=== PATIENT | male | born 1995 ===

== ENCOUNTER 2017-08-27 15:39 | Inpatient (IN) ==
[2017-08-27 17:21] LABS: Basophils % 0.3 %; Eosinophils % 0.1 %; Hematocrit 47.7 % (37.5-50.1); Hemoglobin 16.2 g/dL (12.9-16.9); Immature Granulocytes % 0.3 % (0-4); Lymphocytes # 1.9 K/mcL (0.6-4.6); Lymphocytes % 19.4 %; Mean Corpuscular Hemoglobin 31.4 pg (28.0-33.3); Mean Corpuscular Volume 92.4 fL (83.0-100.0); Monocytes # 1.1 K/mcL (0.0-1.3); Monocytes % 11.5 %; Neutrophils # 6.7 K/mcL (1.6-8.9); Platelet Count 312 K/mcL (140-400); Red Blood Count 5.16 M/mcL (4.19-5.50); Red Cell Distribution Width 12.3 % (11.5-14.5); Segmented Neutrophils % 68.4 %
[2017-08-27 17:35] LABS: Alanine Aminotransferase 27 Units/L (0-55); Albumin/Globulin Ratio 0.9 (1.1-2.2); Alkaline Phosphatase 79 Units/L (38-126); Aspartate Amino Transferase 26 Units/L (5-34); BUN/Creatinine Ratio 13 (6-26); Bilirubin,Direct 0.4 mg/dL (0.0-0.5); Bilirubin,Indirect 0.6 mg/dL (0.0-1.2); Blood Urea Nitrogen 12 mg/dL (8-26); Calcium 9.8 mg/dL (8.6-10.8); Carbon Dioxide 25 mEq/L (19-29); Chloride 99 mEq/L (98-109); Globulin 4.5 g/dL (2.4-3.5); Glucose 99 mg/dL (70-99); Osmolality,Calculated 280 (280-300); Potassium 4.8 mEq/L (3.5-4.5); Sodium 135 mEq/L (136-145); Total Protein 8.5 g/dL (6.0-8.3); eGFR For African Americans > 60 (> 60); eGFR For Non-African Americans > 60 (> 60)
[2017-08-27 17:36] LABS: Lipase < 10 Units/L (8-78)
[2017-08-27] MEDS ORDERED: Sucralfate 1 GM TABLET PO STA (18:21)
[2017-08-27 18:24] LABS: Bilirubin,Urine Negative (Negative); Blood,Urine Moderate (Negative); Clarity,Urine Clear (Clear); Color,Urine Dark Yellow (Yellow); Glucose,Urine (UA) Normal (Normal); Ketones,Urine Negative (Negative); Leukocyte Esterase,Urine Negative (Negative); Nitrite,Urine Negative (Negative); PH,Urine 6.5 pH Units (5.0-8.0); Protein,Urine 30 mg/dL (Neg-Trace); Specific Gravity,Urine > 1.030 (1.010-1.025); Urobilinogen,Urine Normal (Normal)
[2017-08-27 18:28] LABS: Bacteria,Urine None Seen per hpf (None-Few); Hyaline Casts,Urine None Seen per lpf (None-Few); RBC,Urine 15-30 per hpf (0-3); Squamous Epithelial Cell,Urine Few per lpf (None-Few); WBC,Urine 0-3 per hpf (0-3)
--- NOTE | 2017-08-27 18:32 | Emergency Department Note ---
Disposition Clinical Impression: Epigastric pain, Small bowel obstruction Disposition: Admitted As Inpatient Condition: Fair Time of Disposition: 18:49 Abdominal Pain HPI - General Chief Complaint: ED Abdominal Pain Stated Complaint: abd pain Time Seen by Provider: 08/27/17 18:21 Source: patient Mode of arrival: ambulatory Limitations: no limitations Nursing Notes Reviewed: Yes Vital Signs Reviewed: Yes - History of Present Illness HPI Narrative: 22-year-old male with history of intermittent epigastric pain that has been ongoing over the course of the past 2 months. The patient states that this past Saturday he began planing of epigastric pain that was nonradiating. The patient has some associated nausea without vomiting. He denies any fevers, chills, or any other complaints noted. The patient is resting comfortably in the room. He called his PCP today to be seen and they stated that they were unable to get him and so he should go to the emergency department for a CT scan. The patient denies any other complaints. He states that they thought his epigastric pain was so she with a gastric ulcer. The patient denies any melena or hematochezia. The patient states that he has had no real evaluation for his epigastric pain in the past. Pt Subjective Complaint: abdominal pain Onset (ago): day(s) (3) Consistency: intermittent Location: epigastric Pain Severity: moderate Pain Scale: 5 Quality: stabbing Radiation: none Migration to: no migration Improves with: nothing Worsens with: nothing Context: history of similar episodes Associated symptoms: Reports: nausea Treatments prior to arrival: none - Related Data Allergies Allergy/AdvReac Type Severity Reaction Status Date / Time No Known Allergies Allergy Verified 08/27/17 15:43 All systems ED: reviewed and negative except as stated. Constitutional: Denies: fever, chills, weakness ENT ED: Denies: congestion Cardiovascular: Denies: chest pain Respiratory: Denies: dyspnea Gastrointestinal: Reports: abdominal pain, nausea. Denies: vomiting, diarrhea, constipation, hematemesis, melena, hematochezia Genitourinary: Denies: urgency, dysuria Musculoskeletal: Denies: back pain, neck pain, arthralgia, myalgia Integumentary: Denies: rash Neurological: Denies: headache Abdominal Pain PMH - Past Medical History Medical history: Reports: thyroid disease Male Surgical History: Reports: no surgical history Psychiatric history: Reports: no psych history - Social History Smoking status: Never smoker Alcohol use: Reports: occasionally Drug use: Reports: none Physical Exam - General Limitations: no limitations General appearance: alert, in no apparent distress - Head Head exam: atraumatic, normocephalic, normal inspection - Eye Eye exam: Present: normal appearance, PERRL, EOMI - ENT ENT exam: normal exam, normal oropharynx, mucous membranes moist - Neck Neck exam: Present: normal inspection, full ROM, trachea midline - Chest Chest inspection: Present: normal inspection, symmetric chest wall rise - Respiratory Respiratory exam: Present: normal lung sounds bilaterally - Cardiovascular Cardiovascular exam: Present: regular rate, normal rhythm, normal heart sounds - Abdominal Exam Abdominal exam: Present: soft, tenderness (Epigastric). Absent: distention, guarding, rebound, rigidity - Extremities Exam Extremities exam: Present: normal inspection, full ROM. Absent: tenderness, pedal edema Course Vital Signs Temperature 97.9 F 08/27/17 15:40 Pulse Rate 76 08/27/17 15:40 Respiratory Rate 16 08/27/17 15:40 Blood Pressure 135/79 08/27/17 15:40 O2 Sat by Pulse Oximetry 99 08/27/17 15:40 Temperature 98.1 F 08/28/17 22:59 Pulse Rate 48 08/28/17 22:59 Respiratory Rate 15 08/28/17 22:59 Blood Pressure 119/70 08/28/17 22:59 O2 Sat by Pulse Oximetry 98 08/28/17 22:59 Oxygen Delivery Oxygen Delivery Room Air Abdominal Pain - Lab Data Result diagrams: 08/29/17 03:06 08/29/17 03:06 Lab Results 08/27/17 08/27/17 08/27/17 Range/Units 17:14 17:14 18:04 WBC 9.7 (4.3-11.1) K/mcL RBC 5.16 (4.19-5.50) M/mcL Hgb 16.2 (12.9-16.9) g/dL Hct 47.7 (37.5-50.1) % MCV 92.4 (83.0-100.0) fL MCH 31.4 (28.0-33.3) pg MCHC 34.0 (31.6-35.5) g/dL RDW 12.3 (11.5-14.5) % Plt Count 312 (140-400) K/mcL MPV 9.0 L (9.4-12.4) fL Immature Gran % 0.3 (0-4) % Seg Neutrophils % 68.4 % Lymphocytes % 19.4 % Monocytes % 11.5 % Eosinophils % 0.1 % Basophils % 0.3 % Neutrophils # 6.7 (1.6-8.9) K/mcL Lymphocytes # 1.9 (0.6-4.6) K/mcL Monocytes # 1.1 (0.0-1.3) K/mcL Eosinophils # 0.0 (0.0-0.6) K/mcL Basophils # 0.0 (0.0-0.2) K/mcL Sodium 135 L (136-145) mEq/L Potassium 4.8 H (3.5-4.5) mEq/L Chloride 99 (98-109) mEq/L Carbon Dioxide 25 (19-29) mEq/L BUN 12 (8-26) mg/dL Creatinine 0.90 (0.72-1.25) mg/dL Est GFR ( Amer) > 60 (> 60) Est GFR (Non-Af Amer) > 60 (> 60) BUN/Creatinine Ratio 13 (6-26) Glucose 99 (70-99) mg/dL Calculated Osmolality 280 (280-300) Calcium 9.8 (8.6-10.8) mg/dL Total Bilirubin 1.0 (0.2-1.2) mg/dL Direct Bilirubin 0.4 (0.0-0.5) mg/dL Indirect Bilirubin 0.6 (0.0-1.2) mg/dL AST 26 (5-34) Units/L ALT 27 (0-55) Units/L Alkaline Phosphatase 79 (38-126) Units/L Serum Total Protein 8.5 H (6.0-8.3) g/dL Albumin 4.0 (3.5-5.0) g/dL Globulin 4.5 H (2.4-3.5) g/dL Albumin/Globulin Ratio 0.9 L (1.1-2.2) Lipase < 10 (8-78) Units/L Urine Color Dark Yellow (Yellow) Urine Clarity Clear (Clear) Urine pH 6.5 (5.0-8.0) pH Units Ur Specific [place] > 1.030 H (1.010-1.025) Urine Protein 30 H (Neg-Trace) mg/dL Urine Glucose (UA) Normal (Normal) mg/dL Urine Ketones Negative (Negative) mg/dL Urine Blood Moderate H (Negative) Urine Nitrite Negative (Negative) Urine Bilirubin Negative (Negative) Urine Urobilinogen Normal (Normal) mg/dL Ur Leukocyte Esterase Negative (Negative) Urine Microscopic RBC 15-30 H (0-3) per hpf Urine Microscopic WBC 0-3 (0-3) per hpf Ur Squamous Epith Cells Few (None-Few) per lpf Urine Bacteria None Seen (None-Few) per hpf Hyaline Casts None Seen (None-Few) per lpf Ur Culture Indicated? NO (NO) Attestation Statement - Attestation Attestation: I examined this patient and my medical decision-making was reviewed with the Resident Physician. I agree with the documented findings, disposition and treatment plan as described except to the extent set forth below. Sent in by PCP for CT scan. Isolated epigastric pain with one episode of vomiting. Pain may be exacerbated by food but he can't identify specific foods that make it worse. Referred d/t persistence of symptoms. Tender in the epigastrium without guarding on my exam, no peritonitis, abdomen is flat, no distension. CT pending at the time of shift change, checked out to Drs. Suh /Gino.
[2017-08-27] MEDS ORDERED: Tetracaine/Benzocaine/Butamben 200MG/SPRAY (100SPY/BOT) MM ONE (20:44)
[2017-08-27] MEDS: 0.9 % Sodium Chloride 1,000 ML IVC SCH ×2 (20:49→23:37)
--- NOTE | 2017-08-27 21:02 | Emergency Department Note ---
Disposition Clinical Impression: Epigastric pain, Small bowel obstruction Disposition: Admitted As Inpatient Condition: Fair Time of Disposition: 21:03 Abdominal Pain HPI - General Chief Complaint: ED Abdominal Pain Stated Complaint: abd pain Time Seen by Provider: 08/27/17 18:21 Source: patient Mode of arrival: ambulatory Nursing Notes Reviewed: Yes Vital Signs Reviewed: Yes - History of Present Illness Pt Subjective Complaint: abdominal pain Location: epigastric Pain Severity: moderate Pain Scale: 4 Quality: stabbing Migration to: no migration Improves with: nothing Worsens with: nothing Context: history of similar episodes Associated symptoms: Reports: nausea - Related Data Home Medications Medication Instructions Recorded Confirmed Levothyroxine [Synthroid] 75 mcg PO QAM 08/27/17 08/27/17 Allergies Allergy/AdvReac Type Severity Reaction Status Date / Time No Known Allergies Allergy Verified 08/27/17 15:43 Constitutional: Denies: fever, chills, weakness ENT ED: Denies: congestion Cardiovascular: Denies: chest pain Respiratory: Denies: dyspnea Gastrointestinal: Reports: abdominal pain, nausea. Denies: vomiting, diarrhea, constipation, hematemesis, melena, hematochezia Genitourinary: Denies: urgency, dysuria Musculoskeletal: Denies: back pain, neck pain, arthralgia, myalgia Integumentary: Denies: rash Neurological: Denies: headache Abdominal Pain PMH - Past Medical History Medical history: Reports: thyroid disease Male Surgical History: Reports: no surgical history Psychiatric history: Reports: no psych history - Social History Smoking status: Never smoker Alcohol use: Reports: occasionally Drug use: Reports: none Physical Exam - General Limitations: no limitations General appearance: alert, in no apparent distress Course Course Narrative: 22-year-old male with epigastric pain, the patient was signed out by Dr. Lagunas and Dr. Ace, briefly abdominal pain for a few days, with anorexia and loose stools, CT scan shows that there is a small bowel obstruction with to transition points, the patient is to be placed nothing by mouth we will place an NG tube and in consult with general surgeon, plan is for admission hospitalist - Reevaluation(s) Reevaluation #1: Tez accepts for admission gen surg consult Time: 21:02 - Consultations Consultation #1: I spoke with the general surgeon Dr. aparicio, he advises that the patient needs to be kept nothing by mouth maintenance fluids and NG-tube placement he will consult on the patient in the morning agrees with admission to the hospitalist Time: 21:00 Vital Signs Temperature 97.9 F 08/27/17 15:40 Pulse Rate 76 08/27/17 15:40 Respiratory Rate 16 08/27/17 15:40 Blood Pressure 135/79 08/27/17 15:40 O2 Sat by Pulse Oximetry 99 08/27/17 15:40 Temperature 97.9 F 08/27/17 15:40 Pulse Rate 72 08/27/17 19:27 Respiratory Rate 16 08/27/17 19:27 Blood Pressure 122/72 08/27/17 19:27 O2 Sat by Pulse Oximetry 99 08/27/17 19:27 Oxygen Delivery Oxygen Delivery Room Air Abdominal Pain - Differential Diagnosis Differential Diagnosis: Likely: diverticulitis - Medical Records Medical records reviewed: Yes I reviewed the patient's medical records. - Lab Data Lab results reviewed: Yes I reviewed the patient's lab results. Result diagrams: 08/27/17 17:14 08/27/17 17:14 Lab Results 08/27/17 08/27/17 08/27/17 Range/Units 17:14 17:14 18:04 WBC 9.7 (4.3-11.1) K/mcL RBC 5.16 (4.19-5.50) M/mcL Hgb 16.2 (12.9-16.9) g/dL Hct 47.7 (37.5-50.1) % MCV 92.4 (83.0-100.0) fL MCH 31.4 (28.0-33.3) pg MCHC 34.0 (31.6-35.5) g/dL RDW 12.3 (11.5-14.5) % Plt Count 312 (140-400) K/mcL MPV 9.0 L (9.4-12.4) fL Immature Gran % 0.3 (0-4) % Seg Neutrophils % 68.4 % Lymphocytes % 19.4 % Monocytes % 11.5 % Eosinophils % 0.1 % Basophils % 0.3 % Neutrophils # 6.7 (1.6-8.9) K/mcL Lymphocytes # 1.9 (0.6-4.6) K/mcL Monocytes # 1.1 (0.0-1.3) K/mcL Eosinophils # 0.0 (0.0-0.6) K/mcL Basophils # 0.0 (0.0-0.2) K/mcL Sodium 135 L (136-145) mEq/L Potassium 4.8 H (3.5-4.5) mEq/L Chloride 99 (98-109) mEq/L Carbon Dioxide 25 (19-29) mEq/L BUN 12 (8-26) mg/dL Creatinine 0.90 (0.72-1.25) mg/dL Est GFR ( Amer) > 60 (> 60) Est GFR (Non-Af Amer) > 60 (> 60) BUN/Creatinine Ratio 13 (6-26) Glucose 99 (70-99) mg/dL Calculated Osmolality 280 (280-300) Calcium 9.8 (8.6-10.8) mg/dL Total Bilirubin 1.0 (0.2-1.2) mg/dL Direct Bilirubin 0.4 (0.0-0.5) mg/dL Indirect Bilirubin 0.6 (0.0-1.2) mg/dL AST 26 (5-34) Units/L ALT 27 (0-55) Units/L Alkaline Phosphatase 79 (38-126) Units/L Serum Total Protein 8.5 H (6.0-8.3) g/dL Albumin 4.0 (3.5-5.0) g/dL Globulin 4.5 H (2.4-3.5) g/dL Albumin/Globulin Ratio 0.9 L (1.1-2.2) Lipase < 10 (8-78) Units/L Urine Color Dark Yellow (Yellow) Urine Clarity Clear (Clear) Urine pH 6.5 (5.0-8.0) pH Units Ur Specific [place] > 1.030 H (1.010-1.025) Urine Protein 30 H (Neg-Trace) mg/dL Urine Glucose (UA) Normal (Normal) mg/dL Urine Ketones Negative (Negative) mg/dL Urine Blood Moderate H (Negative) Urine Nitrite Negative (Negative) Urine Bilirubin Negative (Negative) Urine Urobilinogen Normal (Normal) mg/dL Ur Leukocyte Esterase Negative (Negative) Urine Microscopic RBC 15-30 H (0-3) per hpf Urine Microscopic WBC 0-3 (0-3) per hpf Ur Squamous Epith Cells Few (None-Few) per lpf Urine Bacteria None Seen (None-Few) per hpf Hyaline Casts None Seen (None-Few) per lpf Ur Culture Indicated? NO (NO) - Radiology Data Radiology results reviewed: Yes I reviewed the patient's radiology results. Abdomen/Pelvis CT 08/27/17 18:21 IMPRESSION: A few mildly to moderately dilated small bowel loops with two suspected distinct transition points, suggestive of a closed loop obstruction. The finding can be seen with and internal hernia, but none is definitely identified. D/ / Drew Doll MD / Drew Doll MD Interpreting Provider: Drew Doll MD Attestation Statement - Attestation Attestation: I, Isiah Suh MD, personally evaluated this patient and discussed their management with the resident physician. I reviewed the resident's note and agree with the documented findings, medical decision making, and plan of care. This patient was signed out at shift change from Dr. Singleton and Dr. Ace. Please refer to their notes for complete details of the history and physical examination. Patient is a young male who presented with a complaint of epigastric abdominal pain for the past 2 days. One episode of vomiting last evening. Decreased bowel movements with a small amount of watery diarrhea. No GI bleed symptoms. No fever. At shift change patient is awaiting a CT of the abdomen and pelvis. On examination patient is a well-developed thin young male in no acute distress. He is alert and oriented 3. There is no cyanosis or diaphoresis. Breath sounds are clear and equal bilaterally. Heart regular rate and rhythm. Abdomen is soft with increased bowel sounds. There is mild to moderate epigastric and periumbilical abdominal tenderness with no guarding or rebound tenderness. No tympany or distention. Labs reviewed. CT abdomen and pelvis returned suggestive of a closed loop small bowel obstruction. Dr. Christian discussed with the surgeon exceptional student education teacher, Dr. Aparicio, and he will consult on patient in the hospital. He did recommend an NG tube be placed. The hospitalist, Dr. Reagan, was consulted and accepted admission of the patient.
[2017-08-28] MEDS ORDERED: *HR* Morphine 2 MG/ML SYRINGE IVP PRN (01:21)
[2017-08-28] MEDS ORDERED: Naloxone 0.4 MG/ML INJ IVP PRN (01:21)
[2017-08-28] MEDS ORDERED: Ondansetron 4 MG/2 ML VIAL IVP PRN (01:21)
--- NOTE | 2017-08-28 01:27 | Internal Med History&Physical ---
Date of Encounter: 08/28/17 Time of Encounter: 01:25 Assessment and Plan (1) Small bowel obstruction Current visit: Yes Status: Acute Patient presented with small bowel obstruction as shown on CT abdomen. General surgery was consulted. IV fluid IV Pepcid IV morphine started. CBC CMP to be repeated in the morning. SCDs for DVT prophylaxis. (2) Hypothyroidism Current visit: Yes Status: Acute We will resume IV Synthroid. Qualifiers: Hypothyroidism type: unspecified Qualified Code(s): E03.9 - Hypothyroidism , unspecified Internal Medicine - H&P: HPI Chief complaint: Abdominal pain Admitted From: Home Plans for Post Hospital Care: Home History of present illness: Mr. Rodriguez is a 22 year old male presented with several day history of abdominal discomfort, nausea vomiting and diarrhea. Abdominal pain is periumbilical and spread over his belly and colicky in nature. In the ER CT abdomen and pelvis without contrast was done which showed dilated small bowel loops with 2 transition points. Patient has been diagnosed with small bowel obstruction. He denied any other symptoms including no hematuria and hematochezia hematemesis melena shortness of breath headache neck pain dysuria urgency frequency or hematuria or any other symptoms otherwise. He seems quite underweight. Past Med Surg Social Fam HX - Past Medical History Medical history: thyroid disease Psychiatric history: no psych history - Past Surgical History Surgical History: no surgical history - Social History Smoking Status: Never smoker Smokeless Tobacco Status: No Alcohol use: occasionally Drug use: none - Family History Father Living Status: Still Living Hx Family Cancer: Yes (Prostate Cancer) Hx Family Endocrine Disorder: Yes (DM) Internal Medicine - H&P: Meds Levothyroxine [Synthroid] 75 mcg PO QAM 08/27/17 [History] 3 Allergy/AdvReac Type Severity Reaction Status Date / Time No Known Allergies Allergy Verified 08/27/17 15:43 All Systems PM: A 10-system review of systems was performed and is negative for pertinent findings except as documented above in the HPI. - Constitutional Constitutional: no chills, no fever(s), no night sweats - EENT Eyes: no change in vision, no discharge, no pain, no photophobia Ears: no ear discharge, no ear pain, no tinnitus Nose, mouth and throat: no dysphagia, no nasal discharge, no neck pain, no sore throat - Cardiovascular Cardiovascular ROS IM: no chest pain, no diaphoresis, no dyspnea, no lightheadedness, no palpitations, no syncope - Respiratory Respiratory: no cough, no dyspnea, no wheezing, no excessive phlegm production - Gastrointestinal Gastrointestinal: diarrhea, nausea, vomiting, no abdominal pain, no hematemesis , no hematochezia, no melena - Musculoskeletal Musculoskeletal ROS IM: no numbness, no tingling - Integumentary Integumentary IM: no rash, no unusual bruising - Neurological Neurological ROS: no confusion, no convulsions, no focal weakness, no numbness, no tingling, no tremor(s) - Hematologic/Lymphatic Hematologic/Lymphatic: no easy bruising - Constitutional Vitals: Temp Pulse Resp BP Pulse Ox 98.1 F 76 16 134/88 97 08/27/17 23:18 08/27/17 23:18 08/27/17 23:18 08/27/17 23:18 08/27/17 23:18 - Head Head exam: Present: atraumatic, normocephalic - Eye Eye exam: Present: PERRL, conjuntiva pink, sclera anicteric Pupils: Present: PERRL - Neck Neck exam general surgery: Present: supple, trachea midline. Absent: lymphadenopathy - Respiratory Respiratory exam: Present: CTAB. Absent: accessory muscle use, rales, rhonchi, wheezes - Cardiovascular Cardiovascular exam: Present: RRR, +S1, +S2. Absent: diastolic murmur, gallop, rubs, systolic murmur - GI/Abdominal GI/Abdominal exam: Present: distended, normal bowel sounds, soft, tenderness, no peritoneal signs - Extremities Exam Extremities exam: Present: warm, radial pulses palpable and symmetrical. Absent : calf tenderness, cyanotic, pedal edema - Neurological Exam Neurological exam: Present: CN II-XII intact, oriented X3, no focal deficits. Absent: pronater drift, facial droop, speech deficit - Skin Skin exam: Present: dry, intact Internal Med - H&P Results - Labs CBC & Chem 7: 08/27/17 17:14 08/27/17 17:14
[2017-08-28] MEDS: Famotidine 20 MG/2 ML VIAL IVP SCH ×2 (05:16→17:35)
[2017-08-28 06:18] LABS: Basophils % 0.1 %; Eosinophils % 0.2 %; Hematocrit 44.3 % (37.5-50.1); Hemoglobin 15.2 g/dL (12.9-16.9); Immature Granulocytes % 0.3 % (0-4); Lymphocytes # 2.2 K/mcL (0.6-4.6); Lymphocytes % 24.5 %; Mean Corpuscular HGB Conc 34.3 g/dL (31.6-35.5); Mean Corpuscular Hemoglobin 31.8 pg (28.0-33.3); Mean Corpuscular Volume 92.7 fL (83.0-100.0); Mean Platelet Volume 9.5 fL (9.4-12.4); Monocytes # 1.2 K/mcL (0.0-1.3); Monocytes % 13.7 %; Neutrophils # 5.5 K/mcL (1.6-8.9); Platelet Count 278 K/mcL (140-400); Red Blood Count 4.78 M/mcL (4.19-5.50); Red Cell Distribution Width 12.5 % (11.5-14.5); Segmented Neutrophils % 61.2 %
[2017-08-28 06:37] LABS: BUN/Creatinine Ratio 14 (6-26); Blood Urea Nitrogen 12 mg/dL (8-26); Carbon Dioxide 25 mEq/L (19-29); Chloride 103 mEq/L (98-109); Glucose 89 mg/dL (70-99); Osmolality,Calculated 285 (280-300); Potassium 4.2 mEq/L (3.5-4.5); Sodium 138 mEq/L (136-145); eGFR For African Americans > 60 (> 60); eGFR For Non-African Americans > 60 (> 60)
[2017-08-28] MEDS: 0.9 % Sodium Chloride 1,000 ML IVC SCH ×3 (08:21→19:21)
--- NOTE | 2017-08-28 15:36 | General Surgery Consult Note ---
Date of Encounter: 08/28/17 Time of Encounter: 15:00 History of Present Illness Consult date: 08/28/17 Reason for consult: abdominal pain Requesting physician: Chas Christian History of present illness: 22-year-old referred for surgical evaluation after presenting to the emergency department with a several-day history of epigastric/periumbilical cramping abdominal pain. Patient denied any emesis. He has been anorexic. Patient describes a similar episode in March which lasted 2-3 days before resolving. It is possible he had a similar episode approximately 1 year ago. The evaluation included lab work which was fairly unremarkable: White count 9.7, hemoglobin 16.2, hematocrit 47.7, platelet count 312,000, normal differential. Electrolytes, BUN, creatinine were within normal limits though potassium was reported to be marginally elevated at 4.8. LFTs were normal. Urinalysis was notable for a specific gravity greater than 1.030 with urine protein of 30 and 15-30 RBCs per high-powered field. CT completed without contrast demonstrated clear lung bases, normal heart size, no pleural or pericardial effusions, normal appearance of the liver, gallbladder, pancreas, spleen, adrenal glands and kidneys. Several mildly dilated loops small bowel in the central upper and lower pelvis are described. Both proximal and distal transition zones were suspected but on my review of these films with adeno radiology those transition points were not clearly identified. The colon was relatively decompressed and the appendix was normal. No significant abdominal or pelvic lymphadenopathy was identified. Past medical history: Hypothyroidism Surgical history: None Medications: Synthroid Allergies: No known drug allergies Social history: Patient is a fourth year at [employer]; he does not smoke nor consume illicit drugs. He does admit to an occasional alcoholic beverage. 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 Physical examination: Age-appropriate male resting comfortably in his hospital bed. NG tube is in place with bilious drainage evident within the suction reservoir. With NG decompression, the patient's crampy abdominal pain has diminished. NG output approximate 550 mL. The patient is 1.8 m tall, 71.9 kg with a BMI of 22.1; maximum temperature 99.2; pulse 56-74, respirations 16, blood pressure 126/69 Skin is warm without obvious jaundice, sclerae are not icteric Lungs: Clear, no obvious abdominal pain with deep inspiration Cardiac: Regular rate with no audible murmurs Abdomen: Soft, nondistended, with active bowel sounds. Minimal tenderness in the left lower quadrant. No obvious intra-abdominal masses, no rebound, no CVAT. Extremities without clubbing cyanosis or edema Impression: 22-year-old male with no prior surgical history noted after presenting to the emergency department with a several day history of epigastric/ periumbilical cramping abdominal pain. CT demonstrated findings suggestive of a small bowel obstruction with the reading radiologist describing 2 possible transition zones suggestive of a closed loop small bowel obstruction. The patient describes similar symptoms in March of this past year and possibly one year ago. No obvious volvulus was identified per CT. The etiology of this patient's symptoms remains obscure. I have discussed the clinical situation with the patient and his family in attendance. A small bowel follow-through with Gastrografin will be initiated. I will follow along with you and make further recommendations as the information becomes available. Past Med Surg Social Fam HX - Past Medical History Medical history: thyroid disease Psychiatric history: no psych history - Past Surgical History Surgical History: no surgical history - Social History Smoking Status: Never smoker Smokeless Tobacco Status: No Alcohol use: occasionally Drug use: none - Family History Father Living Status: Still Living Hx Family Cancer: Yes (Prostate Cancer) Hx Family Endocrine Disorder: Yes (DM) Medications and Allergies Levothyroxine [Synthroid] 75 mcg PO QAM 08/27/17 [History] 3 Allergy/AdvReac Type Severity Reaction Status Date / Time No Known Allergies Allergy Verified 08/27/17 15:43 Review of Systems All systems PM: A 10-system review of systems was performed and is negative for pertinent findings except as documented above in the HPI. General Surgery Exam Initial Vital Signs Temp Pulse Resp BP Pulse Ox 97.9 F 76 16 135/79 99 08/27/17 15:40 08/27/17 15:40 08/27/17 15:40 08/27/17 15:40 08/27/17 15:40 Exam Initial Vital Signs Temp Pulse Resp BP Pulse Ox 97.9 F 76 16 135/79 99 08/27/17 15:40 08/27/17 15:40 08/27/17 15:40 08/27/17 15:40 08/27/17 15:40 Results - Labs 08/28/17 05:28 08/28/17 05:28 Abnormal lab results Serum Total Protein 8.5 g/dL (6.0-8.3) H 08/27/17 17:14 Globulin 4.5 g/dL (2.4-3.5) H 08/27/17 17:14 Albumin/Globulin Ratio 0.9 (1.1-2.2) L 08/27/17 17:14 Ur Specific [place] > 1.030 (1.010-1.025) H 08/27/17 18:04 Urine Protein 30 mg/dL (Neg-Trace) H 08/27/17 18:04 Urine Blood Moderate (Negative) H 08/27/17 18:04 Urine Microscopic RBC 15-30 per hpf (0-3) H 08/27/17 18:04 Diabetes panel 08/28/17 Range/Units 05:28 Sodium 138 (136-145) mEq/L Potassium 4.2 (3.5-4.5) mEq/L Chloride 103 (98-109) mEq/L Carbon Dioxide 25 (19-29) mEq/L BUN 12 (8-26) mg/dL Creatinine 0.85 (0.72-1.25) mg/dL Glucose 89 (70-99) mg/dL Calcium 9.0 (8.6-10.8) mg/dL Calcium panel 08/28/17 Range/Units 05:28 Calcium 9.0 (8.6-10.8) mg/dL Pituitary panel 08/28/17 Range/Units 05:28 Sodium 138 (136-145) mEq/L Potassium 4.2 (3.5-4.5) mEq/L Chloride 103 (98-109) mEq/L Carbon Dioxide 25 (19-29) mEq/L BUN 12 (8-26) mg/dL Creatinine 0.85 (0.72-1.25) mg/dL Glucose 89 (70-99) mg/dL Calcium 9.0 (8.6-10.8) mg/dL Adrenal panel 08/28/17 Range/Units 05:28 Sodium 138 (136-145) mEq/L Potassium 4.2 (3.5-4.5) mEq/L Chloride 103 (98-109) mEq/L Carbon Dioxide 25 (19-29) mEq/L BUN 12 (8-26) mg/dL Creatinine 0.85 (0.72-1.25) mg/dL Glucose 89 (70-99) mg/dL Calcium 9.0 (8.6-10.8) mg/dL All other labs normal. Consult Discharge Plan - Plan Referrals: Ridge Howard MD [Family Provider] - Clay Garcia DO [Primary Care Provider] - 09/02/17 12:00 pm
[2017-08-29 03:29] LABS: Basophils % 0.1 %; Eosinophils % 0.6 %; Hematocrit 40.5 % (37.5-50.1); Hemoglobin 13.9 g/dL (12.9-16.9); Immature Granulocytes % 0.4 % (0-4); Lymphocytes # 1.8 K/mcL (0.6-4.6); Lymphocytes % 26.1 %; Mean Corpuscular HGB Conc 34.3 g/dL (31.6-35.5); Mean Corpuscular Hemoglobin 31.9 pg (28.0-33.3); Mean Corpuscular Volume 92.9 fL (83.0-100.0); Mean Platelet Volume 9.2 fL (9.4-12.4); Monocytes % 14.8 %; Platelet Count 269 K/mcL (140-400); Red Blood Count 4.36 M/mcL (4.19-5.50); Red Cell Distribution Width 12.4 % (11.5-14.5)
[2017-08-29 03:31] LABS: BUN/Creatinine Ratio 15 (6-26); Blood Urea Nitrogen 13 mg/dL (8-26); Carbon Dioxide 23 mEq/L (19-29); Chloride 107 mEq/L (98-109); Glucose 83 mg/dL (70-99); Osmolality,Calculated 289 (280-300); Potassium 3.9 mEq/L (3.5-4.5); Sodium 140 mEq/L (136-145); eGFR For African Americans > 60 (> 60); eGFR For Non-African Americans > 60 (> 60)
[2017-08-29] MEDS: Famotidine 20 MG/2 ML VIAL IVP SCH (05:47)
[2017-08-29] MEDS: 0.9 % Sodium Chloride 1,000 ML IVC SCH (05:48)
--- NOTE | 2017-08-29 11:25 | Discharge Summary ---
Date of Encounter: 08/29/17 Time of Encounter: 11:30 - Discharge Diagnosis (1) Small bowel obstruction Priority: Primary Status: Acute - Discharge Medications Home Medications: Levothyroxine [Synthroid] 75 mcg PO QAM 08/27/17 [History] Allergies/Adverse Reactions: 3 Allergy/AdvReac Type Severity Reaction Status Date / Time No Known Allergies Allergy Verified 08/27/17 15:43 Date of admission: 08/28/17 01:21 Primary care physician: Marcos Ramires - Patient Status Disposition: Home, Self-Care Overall status at discharge: patient is back to baseline - Discharge Instructions Instructions: Bowel Obstruction (DC) Follow Up With: Ridge Howard MD [Family Provider] - Michael Aparicio MD [Non-Partnered Physician] - (Please call office to make follow up in 2 weeks.) Clay Garcia DO [Primary Care Provider] - 09/02/17 12:00 pm Forms: ED Satisfaction Letter, Work/School Release - Diet and Activity Activity: resume usual activities as tolerated Diet: regular diet Hospital course: 22 year old male presented with several day history of abdominal discomfort, nausea vomiting and diarrhea. Abdominal pain is periumbilical and spread over his belly and colicky in nature. In the ER CT abdomen and pelvis without contrast was done which showed dilated small bowel loops with 2 transition points. Patient has been diagnosed with small bowel obstruction. He was admitted with surgical consultation. He had an NG tube placed for a day and was able to pass gas and have a bowel movement. NG tube was removed and he tolerated regular diet. He underwent a GI series follow up and showed no obstruction. It remains unclear as to why he had such presentation. He was discharged and needs to follow up with surgery and a PCP. On day of discharged I heard a systolic mumur throughout with no radiation. I believe it is worth it to check an echo as an outpatient. - Time Spent with Patient Total time spent providing and/or coordinating discharge services: - Constitutional Vitals: Temp Pulse Resp BP Pulse Ox 97.8 F 48 12 126/63 97 08/29/17 07:50 08/29/17 07:50 08/29/17 07:50 08/29/17 07:50 08/29/17 07:50 Exam: GEN: NAD CVS: RRR. S1, S2, systolic murmur heard throughout RESP: CTAB ABD: Soft, NT, ND, +BS EXT: No edema. 2+ DP NEURO: Nonfocal
[2017-08-29 11:26] VITALS: BP 126/68
== END 2017-08-29 12:37 | disposition home or self-care (01) | DRG 390 ==
LOC: EMEROO 15:39 → 3BNU 15:39
PROVIDERS: ADMIT Family Medicine; ATTEND Registered Nurse